=== PATIENT | female | born 1990 ===

== ENCOUNTER 2023-12-14 23:43 | Inpatient (IN) ==
[~2023-12-14 23:43] MED LIST: Lidocaine 1% VIAL 10 MG/ML 30 ML VIAL INJ PRN; Nalbuphine 10 MG/ML 1 ML VIAL IV PRN; Prochlorperazine 5 mg/ml 2 ml VIAL (10 mg) IV PRN
[2023-12-15] MEDS: Buffered Lidocaine 1% SYRIN 1 ml INTRADERM ONE (02:08)
[2023-12-15] MEDS: Lactated Ringers 1000 ml BAG 1,000 ML IV ONE (02:10)
[2023-12-15 02:29] LABS: ABS Lymphocytes 0.8 10^3/uL (1.0-4.8); ABS Monocytes 1.3 10^3/uL (0.0-0.9); ABS Neutrophils 19.4 10^3/uL (1.5-7.6); ABS Nucleated RBC 0.02 10^3/ul; Hemoglobin 10.8 g/dL (11.5-14.3); Lymphocyte % 3.6 %; Mean Corpuscular Hemoglobin 28.9 pg (27-33); Mean Corpuscular Hgb Conc 33.7 g/dL (31-36); Mean Corpuscular Volume 85.7 fL (80-97); Mean Platelet Volume 7.9 fL (7.5-11.2); Nucleated Red Blood Cells % 0.1 %/100WBC (0.0-0.8); Platelet Count 241 10^3/uL (150-450); Red Blood Count 3.74 10^6/uL (3.63-4.92); Red Cell Distribution Width 14.1 % (12-17); White Blood Count 21.5 10^3/uL (3.8-11.8)
[2023-12-15] MEDS ORDERED: Sodium Citrate/Citric Acid LIQ 15 ML UDC PO PRN (02:34)
[2023-12-15] MEDS: Lactated Ringers 1000 ml BAG 1,000 ML IV SCH (02:51)
[2023-12-15] MEDS: OBEPIDURAL (200 ML) 200 ML EPIDURAL SCH (03:00)
[2023-12-15] MEDS: Phenylephrine 40 mcg/mL 10mL (400mcg) SYRINGE IV PUSH PRN ×2 (03:15→03:21)
[2023-12-15 05:02] LABS: Urine Appearance Clear; Urine Bilirubin Negative (Negative); Urine Blood Trace (Negative); Urine Color Light-Yellow; Urine Glucose 2+ (>=150 mg/dL) (Negative); Urine Ketones 4+ (Negative); Urine Nitrite Negative (Negative); Urine Protein 1+ (>=30 mg/dL) (Negative); Urine Specific Gravity 1.018 (1.002-1.030); Urine Urobilinogen Negative (Negative)
[2023-12-15 05:11] LABS: Urine Bacteria Absent /HPF (Absent); Urine Red Blood Cell Trace(0-2/hpf) /HPF (0-Trace); Urine White Blood Cell Trace(0-5/hpf) /HPF (0-Trace)
[2023-12-15 05:13] LABS: Urine Benzodiazepine Screen None Detected (None Detect); Urine Cannabinoids Screen None Detected (None Detect); Urine Opiates Screen None Detected (None Detect)
[2023-12-15] MEDS: Calcium Carb (TUMS) 500 mg CHEW TAB PO PRN (09:10)
[2023-12-15] MEDS: Oxytocin in LR 20,000 MILLI.UNIT/1,000 ML BAG IV SCH (09:11)
[2023-12-15] MEDS ORDERED: Glycerin ADULT 2.4 gm SUPP PR PRN (15:24)
[2023-12-15] MEDS ORDERED: Lactated Ringers 1000 ml BAG 1,000 ML IV SCH (16:00)
[2023-12-15] MEDS: Dibucaine 1% OINT 28.35 GM TUBE PR PRN (20:13)
[2023-12-15] MEDS: Witch Hazel PAD JAR TOPICAL PRN (20:13)
[2023-12-16] MEDS: OBEPIDURAL (200 ML) 200 ML EPIDURAL ONE (05:43)
[2023-12-16] MEDS: Lactated Ringers 1000 ml BAG 1,000 ML IV SCH (05:43)
[2023-12-16] MEDS: Lactated Ringers 1000 ml BAG 1,000 ML IV ONE (05:43)
[2023-12-16] MEDS: Lidocaine 1.5% EPI 1:200,000 30 ML SDV ONE (05:43)
[2023-12-16] MEDS: Lidocaine 2% w/ EPI 1:200,000 MPF 20 ML SDV VIAL ONE (05:44)
[2023-12-16] MEDS: Ondansetron 4 mg VIAL 2 MG/ML 2 ml VIAL ONE (05:44)
[2023-12-16] MEDS: fentaNYL 100 mcg/2 ml 50 MCG/ML VIAL ONE (05:44)
[2023-12-16 06:57] LABS: ABS Monocytes 1.5 10^3/uL (0.0-0.9); Hematocrit 20.6 % (35-45); Hemoglobin 7.1 g/dL (11.5-14.3); Lymphocyte % 10.6 %; Mean Corpuscular Hemoglobin 29.7 pg (27-33); Mean Corpuscular Hgb Conc 34.5 g/dL (31-36); Mean Platelet Volume 7.9 fL (7.5-11.2); Platelet Count 208 10^3/uL (150-450); Red Cell Distribution Width 14.7 % (12-17); White Blood Count 18.5 10^3/uL (3.8-11.8)
[2023-12-16 12:17] LABS: Hepatitis C Antibody Negative (Negative)
[2023-12-16] MEDS: Iron Sucrose 200 MG in NS 0.9% 100 ml BAG 100 ML IVPB ONE (13:58)
[2023-12-17 07:59] LABS: Hematocrit 18.6 % (35-45); Hemoglobin 6.4 g/dL (11.5-14.3)
[2023-12-17 17:38] LABS: Hematocrit 23.6 % (35-45); Hemoglobin 8.1 g/dL (11.5-14.3)
[2023-12-17 18:16] VITALS: BP 114/69
== END 2023-12-17 19:30 | disposition home or self-care (01) | DRG 542 ==
LOC: MCHOB 23:43 → MCHOBOUT 23:43 → MCHOB 12-15 21:44
PROVIDERS: ADMIT Obstetrics & Gynecology; ATTEND Obstetrics & Gynecology